=== PATIENT | female | born 1945 | race Two or more races ===

== ENCOUNTER → 2017-02-12 | Outpatient (CLI) | payer MEDICARE ==
--- NOTE | 2017-02-13 16:16 | RADRPT ---
PROCEDURE: XR Knees. CLINICAL INDICATION: Bilateral knee pain. TECHNIQUE: Total of six views. Frontal, oblique, and lateral views of both knees. COMPARISON: No prior study is available for comparison. FINDINGS: There is no fracture or dislocation. The soft tissues are normal. There are degenerative changes of both knees with osteophytes arising from all 3 joint compartment m argins. There is bilateral severe medial joint compartment narrowing, subarticular sclerosis, subar ticular cysts, and deformity. There is bilateral varus deformity. There is no lytic or blastic lesion. There is no radiopaque foreign body. IMPRESSION: 1. Severe degenerative changes of both knees predominately involving the medial joint compartments with associated varus deformity. RPTAT: QQ .Sreekanth Lassiter MD, MD Date Time Electronically viewed and signed by .Sreekanth Lassiter MD, MD on 02/13/2017 16:16 .R/
--- NOTE | 2017-02-13 21:56 | HKNOTE ---
DATE OF SERVICE: 02/12/2017 MAIN COMPLAINT: Pain in both knees. HISTORY OF MAIN COMPLAINT: The patient is a 71-year-old female, who complains of pain in both knees , which has been present for 4 or 5 years. The pain has become progressively worse. She has not se en an orthopedic surgeon for this problem. She comes in with her daughter who speaks perfect Hungarian. The patient herself speaks no Hungarian. The daughter translates. PRESENT COMPLAINTS: The pain is equally severe in both knees and is aggravated by walking, weightbe aring, and stair climbing. She uses a cane all the time. She does get rest pain on occasion. She has tried taking several yiwq-skk-bobiwko antiinflammatories and pain medications, which have not he lped her at all. She limps all the time. The right leg feels longer than the left leg. She does not have a shoe lif t. She can clip her toenails and tie her shoelaces. PAST ORTHOPEDIC HISTORY PREVIOUS ORTHOPEDIC OPERATIONS: None. PRIOR CORTISONE INTAKE: None. ALCOHOL INTAKE: None. OTHER JOINT PROBLEMS: None. BLOOD TESTS FOR ARTHRITIS: Yes (does not know the results). 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 PAST MEDICAL HISTORY: 1. Hypertension. 2. Diabetes. 3. History of deep vein thrombosis 2 years ago. PAST SURGICAL HISTORY: section 1984. DRUG ALLERGIES: NONE. MEDICATIONS: 1. Baclofen as a muscle relaxant. 2. Naproxen 550 mg. 3. Clopidigrel gel 15 mg a day as prophylaxis against deep vein thrombosis. 4. Lisinopril 10 mg daily for hypertension. 5. Metformin 500 mg a day for diabetes. 6. Uloric 80 mg a day "for uric acid levels." FAMILY HISTORY: Noncontributory. SYSTEMS REVIEW: Prone to dizzy spells, occasional nausea, heartburn, appetite loss, excess night ur ination, hypertension, diabetes, tends to constipation, 5 pregnancies. HABITS: Patient does not smoke or drink alcoholic beverages (never has). LOAN UNDERWRITER: David Kim MD/[address] [facility]; [place], [place] [address]. PHYSICAL EXAMINATION GENERAL: The patient is an extremely fragile-looking 71-year-old female. She walks with a cane and she has a marked antalgic gait; she can barely get onto the examination couch. HIPS: Both hips have full range of motion without pain. RIGHT KNEE: Right knew shows varus alignment. Extension lacks 20 degrees, flexion to 95 degrees, 6 + crepitus in the knee, none in the patella, marked pain on forced extension and full flexion. LEFT KNEE: Left knee shows varus alignment. Active and passive extension lacks 10 degrees, active and passive flexion to 90 degrees, 6+ crepitus in the knee, none in the patella. IMAGING: Plain x-rays of the right knee obtained today were reviewed and show exceedingly severe de generative osteoarthritis affecting all 3 compartments with varus alignment, jozs-gh-mfbd contact me dially, subchondral sclerosis, and osteophyte formation, depression of the lateral tibial plateau, s evere medial compartment arthritis, down-rz-ipzpvjyc patellofemoral arthritis. Plain x-rays of the left knee obtained today were reviewed and show exceedingly severe degenerative osteoarthritis affecting all 3 compartments with varus alignment, cqoy-cn-pwqd contact medially, sub chondral sclerosis, and osteophyte formation, degenerative depression of the medial tibial plateau; fracture cannot be completely excluded, and dnca-ks-rgeajwcb patellofemoral arthritis. DIAGNOSES: 1. Exceedingly severe degenerative osteoarthritis of both knees, about equal in symptomatology. 2. History of deep vein thrombosis, currently on clopidogrel. 3. Hypertension. 4. Diabetes. MANAGEMENT: The patient was advised through her daughter, that she has extremely severe arthritis o f both knees, and that her options are to either live with the pain or to consider knee replacement surgery. The operation of total knee replacement was discussed with the patient and her daughter in a good amount of detail including some of the major possible complications. The patient was given my manual titled "Arthritis of the Knee Joint" which contains information conc erning the various alternatives of treatment. It includes various forms of conservative treatment, i ncluding the use of nonsteroidal anti-inflammatory medications and their dangers. Various surgical a lternatives are discussed. The technique of total knee replacement is discussed in detail, including possible complications. Included also is a section on the possible complications of blood transfusi on, a section on postoperative precautions, and an exercise program to follow at home after total kn ee replacement. The long-term care of a total knee replacement implant is also covered in detail. Th e patient was instructed to read this manual in its entirety since it is, in and of itself, a form o f informed consent. After reading this manual, the patient will make a list of further questions bibi t may not have been covered adequately. The patient was further advised that this manual, although e xhaustive in nature, is only intended to supplement and complement a one-on-one discussion with me. The patient's daughter was referred to my website, [facility]. FINAL DIAGNOSES: 1. Exceedingly severe degenerative osteoarthritis of both knees, about equal in symptomatology. 2. History of deep vein thrombosis, currently on clopidogrel. 3. Hypertension. 4. Diabetes. The patient was seeing Dr. Sreekanth Kim and her seam checker for a full evaluation with determinatio n of the risks involved in the surgery. Once they have given their blessing to proceed, she will be scheduled to have the most symptomatic knee operated upon first. The patient was advised, when she asked, that we cannot perform bilateral knee replacements on her. REFERRING PHYSICIAN: Sreekanth Kim MD ADDRESS: [id number] [place], [place] [address]. on right now and nonactive down the entire report on a separate all by herself because will be on t o my Dictated By: VIKA SHANKS/NTS Conf#: [id number] DID#: [id number]
--- NOTE | 2017-02-13 22:07 | HKNOTE ---
DATE OF SERVICE: 02/12/2017 REFERRING PHYSICIAN: Sreekanth Kim MD Dear Dr. Kim: Thank you for referring Estrellita Swanson, who was seen in my office today complaining of pain in both kne es. She has exceedingly severe degenerative osteoarthritis of both knees and the only remedy would be bi lateral knee replacements done in staged procedures. She has a history of diabetes, hypertension, and deep vein thrombosis. I would appreciate if you co uld perform a complete evaluation on her before we consider scheduling surgery. She seems to be anxious to have the surgery. We will notify your office once we have scheduled an o perative date. Thank you for your confidence in referring her to my care. Enclosed is a copy of my office notes fo r your records. ADDENDUM: Ultrasonic evaluation of both lower legs performed on 01/09/2017 is reported as showing " no scintigraphic evidence of deep vein thrombosis, soft tissue swelling with right prepatellar focal fluid collection, which may represent bursitis. Dictated By: VIKA SHANKS/VJ Conf#: [id number] DID#: [id number] CC: Miller Jaffe;*EndCC*
== END | disposition home or self-care (01) ==
LOC: HKI 15:10
DX: M17.0 Bilateral primary osteoarthritis of knee (principal); I82.509 Chronic embolism and thrombosis of unspecified deep veins of unspecified lower extremity; E11.9 Type 2 diabetes mellitus without complications; I10 Essential (primary) hypertension
CPT/HCPCS: 73562; G0463

== ENCOUNTER 2017-04-08 07:30 | Inpatient (IN) | payer MEDICARE, OTHER ==
[~2017-04-08] VITALS: Ht 147.3 cm; Wt 82.0 kg
--- NOTE | 2017-04-09 10:20 | PREOPHP ---
DATE OF ADMISSION: 04/11/2017 The patient to have surgery with Dr. Wayne Kulkarni on 04/11/2017. CONSULTATION REQUESTED BY: Dr. Wayne Kulkarni for medical evaluation and clearance of a 71-year-old woman about to undergo surgery. Thank you, Dr. Shaikh for allowing us to participate in care of this patient. Estrellita Swanson is a 71-year-old woman, issues with her right knee, is currently being admitted for correction of the above problem. PAST SURGICAL HISTORY: She has had 1 and 4 vaginal deliveries, was admitted once with cellulitis. Otherwise, has had no other surgeries and has been relatively healthy nor has she broken any bones. MEDICATIONS: Include the following, metformin 500 mg a day. Plavix 75 mg a day. Dexilant 60 mg a day. Lisinopril 10 mg a day. Bumex 1 mg a day. Naprosyn 500 mg that she has stopped. ALLERGIES: SHE IS NOT ALLERGIC TO ANY MEDICATIONS. SOCIAL HISTORY: Patient is . Has 5 children, 16 grandchildren and no great grandchildren yet. She does not smoke or drink alcohol nor does she drink any coffee. Usually has no difficulty sleeping at night. FAMILY HISTORY: Both parents are . Father age 72, had heart issues. Mother 77, diabetes and its complications. She is one of eleven or twelve. There is a family history of diabetes and heart. No cancer, hypertension, or strokes. REVIEW OF SYSTEMS: HEENT: Periodic tension headaches. CARDIORESPIRATORY: Denies any chest pain or shortness of breath. GASTROINTESTINAL: Has signs and symptoms of hyperacidity; otherwise no melena or hematemesis. GENITOURINARY: No urgency frequency. GYNECOLOGIC: Postmenopause, up-to-date. MUSCULOSKELETAL: Positive for right knee pain. NEUROPSYCHIATRIC: Unremarkable in general health, as above. PHYSICAL EXAMINATION: Patient's blood pressure was 120/60, pulse was 78 and regular, respirations were 18, temperature 97.6, height 5 feet 1 inch, weight 182 pounds. GENERAL APPEARANCE: Patient was noted to be a well-developed, well-nourished female, alert and cooperative, in no apparent acute distress. Oriented to time, place, and person. HEENT: Head was atraumatic. The eyes: Pupils were equal, reactive to light and accommodation. Fundi were benign. Tympanic membranes were unremarkable. Nose was negative. Mouth was unremarkable. Fair oral hygiene was present. NECK: Supple without any rigidity. Trachea was midline. Thyroid was within normal limits. Neck veins were flat. Carotid pulses were equal. No bruits were heard. BACK: Exam was unremarkable. CHEST: Symmetrical. BREAST AND AXILLARY: Exam did not reveal any masses. LUNGS: Clear to percussion and auscultation. HEART: PMI is 5th intercostal space at the midclavicular line. Regular sinus rhythm was noted. No significant murmurs, rubs, or gallops being elicited. ABDOMEN: Soft. Good bowel sounds were noted. No significant organomegaly, masses or tenderness. Scar from prior surgery was noted. GENITALIA AND PELVIRECTAL: Exam up-to-date per primary care physician. EXTREMITIES: Did not reveal any clubbing, edema, or cyanosis. Peripheral pulses were physiologic. SKIN: Moist and warm without any eruptions. No gross lymphadenopathy was noted. NEUROLOGIC: Exam was grossly intact. IMPRESSION: 1. Degenerative joint disease, right knee. 2. Hypertension. 3. Hyperlipidemia. 4. Gastroesophageal reflux disease. 5. Prediabetes mellitus type 2. 6. Stable health. REVIEW OF LABORATORY AND OTHER DATA: Patient's chemistry panel revealed a random glucose of 122, normal electrolytes, BUN, creatinine. Liver function tests were normal. Thyroid function tests were normal as well. Hemoglobin A1c was 5.7. The patient's vitamin B12 was low. Patient will be advised to take supplementation. Patient's EKG was normal, as was her chest x- ray. DISCUSSION: Dr. Kulkarni, I see no contraindications to patient undergoing current proposed surgery under desired form of anesthesia and feel she is a suitable candidate at this particular point in time. We will be more than happy to follow her with you during her stay at [facility]. Thank you again Dr. Kulkarni for allowing us to participate in care this patient. Dictated By: Luís Sosa MD /chevy/wilner /Document#: [id number]
[2017-04-10 12:11] VITALS: BMI 36.6
[2017-04-11] VITALS (21 sets, daily range): BP systolic 127–157; BP diastolic 60–92; PULSE 75–108; RESP 12–26; Ht 147.3 cm; Wt 82.0 kg
[2017-04-11] MEDS ORDERED: VANCOMYCIN 1 GM (PMX) 250 ML IVPB ONE (06:11)
[2017-04-11] MEDS ORDERED: NAPR-260 PO (06:21)
[2017-04-11] MEDS ORDERED: CLOP75TA27 PO (06:21)
[2017-04-11] MEDS ORDERED: BUME1TAB18 PO (06:21)
[2017-04-11] MEDS ORDERED: METF500T4 PO (06:21)
[2017-04-11] MEDS ORDERED: DEXL60CA2 PO (06:21)
[2017-04-11] MEDS ORDERED: LISI10TA2 PO (06:21)
[2017-04-11] MEDS ORDERED: ONDANSETRON 4 MG INJ IV ONE (06:30)
[2017-04-11] MEDS ORDERED: LACTATED RINGER'S 1,000 ML IV* SCH (06:30)
[2017-04-11] MEDS ORDERED: DEXAMETHASONE 4 MG/ML 1 ML INJ IV ONE (06:30)
[2017-04-11] MEDS ORDERED: oxyCODONE (CR) 10 MG TAB [oxyCONTIN] PO ONE (06:30)
[2017-04-11] MEDS ORDERED: LANSOPRAZOLE 30 MG CAP PO ONE (06:30)
[2017-04-11] MEDS ORDERED: CELECOXIB 200 MG CAP PO ONE (06:30)
[2017-04-11] MEDS ORDERED: SOD CHLORIDE 0.9% IRR SCH ×2 (06:30)
[2017-04-11] MEDS ORDERED: TRANEXAMIC ACID IVPB ONE (06:30)
[2017-04-11] MEDS ORDERED: TRANEXAMIC ACID IRR SCH ×2 (06:30)
[2017-04-11] MEDS ORDERED: ACETAMINOPHEN 1000MG/100ML IV 100 ML IVPB ONE (06:30)
[2017-04-11] MEDS ORDERED: SOD CHLORIDE 0.9% IVPB ONE (06:30)
--- NOTE | 2017-04-11 06:30 | HPN ---
Date/Time of Note Date/Time of Note DATE: 04/11/17 TIME: 06:30 Interval H&P Admission Note Pt. seen H&P reviewed: No system changes ANTELMO CLAY PA-C Apr 11, 2017 06:30
[2017-04-11] MEDS ORDERED: POLYMYXIN B 500000 UNIT INJ ONE (07:30)
[2017-04-11] MEDS ORDERED: VANCOMYCIN 1 GM INJ ONE (07:30)
[2017-04-11] MEDS ORDERED: METHYLENE BLUE 1% 10 ML INJ ONE (07:31)
[2017-04-11] MEDS ORDERED: ROPIVACAINE 0.2% 100 ML ONE (07:31)
[2017-04-11] MEDS ORDERED: TOBRAMYCIN 1.2 GM POWDER ONE (07:31)
[2017-04-11] MEDS ORDERED: BUPIVACAINE 0.25%/EPI (SDV) 30 ML INJ ONE ×2 (07:35→10:25)
[2017-04-11] MEDS ORDERED: MIDAZOLAM 1 MG/ML 2 ML INJ ONE (07:43)
[2017-04-11] MEDS: KNEE PAIN COCKTAIL VANCO INJ SCH ×12 (08:00→09:28)
[2017-04-11] MEDS ORDERED: FENTAnyl 50 MCG/ML VIAL ONE (08:07)
[2017-04-11] MEDS ORDERED: ROPIVACAINE 0.5 % 30 ML VIAL ONE (08:08)
[2017-04-11] MEDS ORDERED: BACITRACIN 50000 UNITS INJ IRR ONE (09:27)
[2017-04-11] MEDS ORDERED: ROPIVACAINE 0.2% 100ML BAG INJ ONE (09:28)
[2017-04-11] MEDS ORDERED: ONDANSETRON 4 MG INJ ONE (12:16)
[2017-04-11] MEDS ORDERED: ETOMIDATE 20 MG INJ ONE (12:16)
[2017-04-11] MEDS ORDERED: LIDOCAINE 2% (SDV) 5 ML INJ ONE (12:16)
[2017-04-11] MEDS ORDERED: ROCURONIUM 50 MG INJ ONE (12:16)
[2017-04-11] MEDS ORDERED: DEXTROSE 5%-LR 1,000 ML IV SCH (12:26)
[2017-04-11] MEDS ORDERED: NALOXONE (0.4 MG/ML) INJ IV PRN (12:30)
[2017-04-11] MEDS ORDERED: oxyCODONE 5 MG TAB PO PRN ×2 (12:30)
[2017-04-11] MEDS ORDERED: DIPHENHYDRAMINE 50 MG INJ IM PRN (12:30)
[2017-04-11] MEDS ORDERED: NA PHOSPHATE/BIPHOS 133 ML ENEMA PR PRN (12:30)
[2017-04-11] MEDS ORDERED: MAGNESIUM HYDROXIDE 30ML CUP PO PRN (12:30)
[2017-04-11] MEDS ORDERED: HYDROmorphONE 0.2 MG/ML PCA IV PRN (12:30)
[2017-04-11] MEDS ORDERED: COUMADIN NOTE XX SCH (12:30)
[2017-04-11] MEDS ORDERED: ZOLPIDEM 5 MG TAB PO PRN (12:30)
[2017-04-11] MEDS ORDERED: SENNA/DOCUSATE NA (8.6MG/50MG) TAB PO PRN (12:30)
[2017-04-11] MEDS ORDERED: MEPERIDINE 10 MG/ML 30 ML PCA IV PRN (12:30)
[2017-04-11] MEDS ORDERED: BISACODYL 10 MG SUPP PR PRN (12:30)
[2017-04-11] MEDS ORDERED: BETHANECHOL 25 MG TAB PO PRN (12:30)
[2017-04-11] MEDS ORDERED: DOCUSATE SODIUM 100 MG CAP PO ONE (12:38)
[2017-04-11] MEDS ORDERED: ASPIRIN (EC) 325 MG TAB PO ONE (12:38)
--- NOTE | 2017-04-11 12:38 | PDOCDIS ---
Discharge Instructions DIAGNOSIS Discharge Diagnosis Status post right total knee arthroplasty CONDITION Patient Condition: Stable HOME CARE INSTRUCTIONS: Diet Instructions: Regular ACTIVITY: Activity Restrictions: Slowly Increase Activity Rest between Activity Avoid heavy lifting No Sexual Activity Do not Drive Do not operate Machinery Do not operate Power Tool Avoid Heavy Housework Keep Limb Elevated (And use ice modalities while limits elevated at rest.) Weight Bearing (As tolerated with front wheeled walker.) Bathing Restrictions: Shower (Using Tegaderm with pad. Apply prior to shower. Make sure that area is nice and dry before removal. Repeat the steps each days until katrina are removed 10 days postoperatively.) FOLLOW UP/APPOINTMENTS Follow-up Plan 05/01/2017 at 2:45 PM ANTELMO CLAY PA-C Apr 11, 2017 12:37
--- NOTE | 2017-04-11 12:39 | OPR ---
Date/Time of Note Date/Time of Note DATE: 04/11/17 TIME: 12:34 Operative Report Preoperative Diagnosis Severe Deg Right Knee Postoperative Diagnosis Same Operation/Procedure Performed Right Total Knee Replacement. Anesthesia Type: general, epidural Estimated Blood Loss: 150 - 200 ml's Transfusion Required: no Specimens Bone Grafts/Implants: none Complications: no VIKA MICHAUD MD Apr 11, 2017 12:39
[2017-04-11] MEDS ORDERED: CEFAZOLIN 1 GM/50 ML (PMX) 50 ML IVPB ONE (12:44)
[2017-04-11] MEDS: CEFAZOLIN 1 GM/50 ML (PMX) 50 ML IVPB SCH ×2 (12:55→20:50)
[2017-04-11] MEDS: ONDANSETRON 4 MG INJ IV SCH ×2 (12:56→18:01)
--- NOTE | 2017-04-11 12:58 | OPR ---
Date/Time of Note Date/Time of Note DATE: 04/11/17 TIME: 12:49 Operative Report Free Text/Dictation Date of Operation: 818 1 7 Surgeon: Wayne Kulkarni MD Client Retention Specialist: Jonny Wright PA-C Anesthesiologist: Dr. Lawrence Navas Preoperative Diagnosis: Exceedingly severe degenerative osteoarthritis of the right knee. Postoperative Diagnosis: Exceedingly severe degenerative osteoarthritis of the right knee. Operation Performed: Total knee replacement (arthroplasty of the knee, condylar plateau medial and lateral compartments with patella resurfacing, CPT 87454). Justification for Surgery: The knee was found to have an end-stage osteoarthritis. The patient is a very active 71-year-old diffuse lifestyles markedly affected by the arthritic knee. An extensive course of conservative care has been tried prior to embarking on the knee replacement operation. There can be no reasonable expectation that any further conservative treatment will make any improvement to this patient's pain level and lifestyle. The risks and complications of the surgery were discussed with the patient at the preoperative visit as well as the risks and possible complications of blood transfusion using hospital blood. The patient is agreeable to using hospital blood if needed. Description of Procedure: The patient was given intravenous antibiotics 1 hour prior to surgery. An epidural anesthetic was initiated in the ICU holding area. The patient was taken to the operating room and given a light general anesthetic. The leg, foot, and ankle were prepared and draped in the usual sterile fashion. The center of the ankle was marked at the midpoint between the 2 malleoli with a sterile marking pen. A tourniquet around the thigh was inflated to 250 mmHg after the leg had been exsanguinated using an Esmarch bandage. The tourniquet was inflated at the initiation of procedure for a short period and was then again reinflated at the time of cementing the components parts. The total tourniquet time was [] minutes. A longitudinal incision was made over the anterior aspect of the knee. The incision extended from the tibial tubercle to a point just above the patella. The medial capsule was exposed by sharp and blunt dissection, and was incised inch medial to the patella. A marking stitch was set on each side of the incision at the midpoint of the capsule so as to enable accurate reapproximation at the end of the operation. A vastus split was made in the vastus medialis extending from the superior pole of the patella for approximately 5 cm between the line with the muscle fibers. The ends of the muscle split at the patella were marked with a marking stitch on each side for later accurate reapproximation. The patella was reflected laterally and osteophytes around the brim of the patella were removed. Osteophytes along the lateral femoral condyle were removed so as to facilitate lateral reflection of the patella. Posterior medial osteophytes were removed on the lateral side as well, Sastry free of the lateral collateral ligament. Medial femoral osteophytes and posteromedial femoral osteophytes were also removed at this time. This allowed for the knee to be brought into a more normal alignment. A segment of bone was cut from the articular surface of the patella using a caliper to determine the exact thickness to be removed. The remaining thickness of the patella was 18 mm mm. The knee was flexed, and the patella was displaced laterally without eversion. Osteophyte in the femoral notch were removed. The remnants of the medial and lateral menisci were excised and the cruciate ligaments were excised. The medial collateral ligament was elevated as an osteo -periosteal flap from the proximal tibia. The distal end of the medial collateral ligament remained attached to the tibia throughout the operation. The tibia was retracted forward with Hohmann retractor, inserted posterior to the midpoint of the proximal tibia. The tibial jig was set in place in such a way as to align longitudinally with the anterior tibial spine, with the junction of the middle and medial 2/3 of the patella tendon and with the posterior intercondylar eminence of the tibia. An AP and lateral x-ray was obtained with the ligament jig in place. This showed that the alignment was satisfactory after some slight adjustments were made. The posterior slope of the tibia was set at 6 degrees. The tibial cutting block was attached to the proximal tibia with 2 Steinmann pins. An external alignment samara was placed and the cutting block to confirm the alignment of the cutting block. An Cruzito Wing feeler gauge was now placed on the superior aspect of the cutting block to further confirm the posterior slope of the tibia in the depths of the cut to be made. An oscillating saw was used to remove an appropriate amount of bone from the proximal tibia with the healthy side being used to measure the cutting depth. The lateral femoral condyle of the distal femur was measured to determine the appropriate size for the femoral component. The anterior condyle of the femur was partially removed with a rongeur. A medium size cutting block was attached to the distal femur with 2 Steinmann pins through the pinholes in the block. The external alignment jig of this cutting block was lined up with the anterior surface of the femur and a central intercondylar hole for the intra -medullary samara was drilled into the hole and the alignment block. The block was removed. A long Water pik nozzle was used to flush fat from the intramedullary canal. The appropriately sized cutting block was now attached to the femur by means of intramedullary samara. The linking guide was inserted into the slot in the base of the femoral cutting block with the knee set at 90 degrees of flexion and with the linking guide set flush with the proximal tibial cut in order to set the appropriate rotational alignment on the femoral cutting block. Ligament balance was checked at this point and was found to be very satisfactory. Once the rotational alignment had been determined, and the ligaments found to be balanced, the femoral cutting block was secured to the distal femur with 2 Steinmann pins. The anterior and posterior cuts of the distal femur were made off the femoral cutting block. The cutting block was removed and a spacer block was used to measure the flexion gap which was found to be 12.5 mm. The same block size without the femoral element was used with the leg extension to determine the amount of distal femur to be removed in the transverse plane. A 5 degree distal cutting block was now set on the femoral entry intramedullary samara, and the samara was inserted into the intramedullary canal. The appropriate amount of bone to be removed was determined. The femoral cutting block was pinned to the anterior surface of the femur with 2 Steinmann pins. The appropriate amount of bone was resected off the distal femur to give an extension gap equal to the thickness of the flexion gap. The cut needed to be repeated after initial cut in order to produce an extension gap the same size of the flexion gap. By using the appropriate cutting blocks, the rest of the femoral cuts were made. The femoral trial component was installed and was found to fit perfectly. The femoral trial component was removed. The proximal tibia was sized, and the appropriate tibial tray selected. The central fixation hole in the tibia was made using the tibial tray template and the appropriate instruments. The femoral tibial trials and the trial tibial insert were installed, and the patella was prepared to accept the 32 m sized dome component. The trial components were all removed. The tourniquet was inflated. Soft tissues around the knee, especially the posterior capsule, were injected with mixture of Naropin, Toradol, morphine, and clonidine. The cut surfaces of the bones were cleaned with pulsatile Water Jet lavage and thoroughly dried. Sclerotic bone surfaces were drilled with a 1/8-inch drill. The tibial trial component was installed with the methyl methacrylate cement followed by the femoral component and finally the patellar component. Cement was used on all 3 components. The cement was finger packed into the cut surfaces of the bone and pressurized with a rubber dam in order to get good interdigitation of the cement into the bone. A lateral x-ray of the knee was obtained while the cement was hardening with the anticipated appropriate spacer trial in place. This showed that the knee was in full extension. Once the cement was hard, all extraneous cement was removed. The cut edges of the medial capsule were held together at the midpoint with a towel clip, and the knee was put through a full range of motion. The patella was found to track satisfactorily. A lateral release was not required. At this point, the patella was round to track very well in the patellar groove of the femoral component. The knee was frequently irrigated with normal saline containing antibiotics with pulsatile lavage throughout the entire operation as a prophylactic measure against infection. Once the cement was hard, the tourniquet was released. Bleeding points were cauterized. The total tourniquet time was []. The patient 's vital signs remained stable throughout the operation. The permanent rotating bearing was installed. Superficial and deep Hemovac drains were set in place. The wound was closed using interrupted Vicryl on the capsule with FiberWire used strategic points such as the attachment of the distal ends of the vastus medialis split, and the tibial tendon was also attached to the osteo--periosteal flap with FiberWire. The rest of the medial capsule was closed with interrupted Vicryl. A subcuticular stitch was inserted and katrina were used on the skin. The usual sterile dressings were applied. A Vivek-Ulloa compression dressing was applied after sterile cooling pad had been set in place against the deep tissue by sterile cast padding. The patient's condition at the end of the procedure was satisfactory. Vital signs remained stable throughout the operation. The patient returned to the recovery room in stable condition. X-rays were obtained in the recovery room. Calf pumps were applied to both legs in the operating room. There were no problems or complications as far as we know. The sponge and instrument count were correct. Component Information: Knee Implant Type: LCS. 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 Total Tourniquet Time: 12.5 Total Blood Loss: 150 Dictacted By: Wayne Kulkarni MD Procedure Date: Apr 11, 2017 Anesthesia Type: general, epidural Estimated Blood Loss: 150 - 200 ml's Transfusion Required: no Complications: no WAYNE KULKARNI MD Apr 11, 2017 12:58
[2017-04-11] MEDS: ACETAMINOPHEN 1000MG/100ML IV 100 ML IVPB SCH ×2 (13:02→20:20)
--- NOTE | 2017-04-11 14:17 | RADRPT ---
PROCEDURE: Right knee x-ray. CLINICAL INDICATION: Intraoperative localization for right knee replacement procedure. TECHNIQUE: Two x-ray images were obtained intraoperatively during a right knee prosthesis placemen t procedure. COMPARISON: None available FINDINGS: 2 x-ray images were obtained intraoperatively for localization during a right knee prosthesis placem ent procedure. The procedure was performed by Dr. Kulkarni; images were obtained for localization intraoperatively. Surgical hardware is seen in place. IMPRESSION: 1. Xray images obtained intraoperatively for localization during a right knee prosthesis placement procedure. RPTAT: QQ .Saroj Worley MD, Date Time Electronically viewed and signed by .Saroj Worley MD, on 04/11/2017 14:16 .R/
[2017-04-11] MEDS ORDERED: BACITRACIN 50000 UNITS INJ ONE (15:05)
[2017-04-11] MEDS ORDERED: GLUCOSE GEL 15 GRAM TUBE BUCCAL PRN (15:30)
[2017-04-11] MEDS ORDERED: GLUCAGON 1 MG INJ IM PRN (15:30)
[2017-04-11] MEDS ORDERED: TRANEXAMIC ACID 820 MG in SOD CHLORIDE 0.9% 100 ML IVPB ONE ×2 (15:30→18:30)
[2017-04-11] MEDS ORDERED: GLUCOSE GEL 15 GRAM TUBE PO PRN ×2 (15:30)
[2017-04-11] MEDS ORDERED: DEXTROSE 50% 50 ML SYRINGE IV PRN ×2 (15:30)
--- NOTE | 2017-04-11 16:00 | CONS ---
Date/Time of Note Date/Time of Note DATE: 04/11/17 TIME: 15:50 Consult Date/Type/Reason Admit Date/Time Apr 11, 2017 at 05:49 Initial Consult Date 04/02/2017 Type of Consultation: internal medicine/endo Reason for Consultation pre operative medical evaluation and clearance Ordering Provider: VIKA MICHAUD MD Subjective patient getting back into bed after walk with pt seems stable Objective Vital Signs Date Time Temp Pulse Resp B/P Pulse Ox O2 Delivery O2 Flow Rate FiO2 04/11/17 13:31 88 14 148/74 95 Room Air 04/11/17 12:46 10.0 04/11/17 12:41 98.0 Exam vss heent neg. lungs clear heart regular rhythm Results/Medications Results 24 hrs Laboratory Tests Test 04/11/17 06:42 04/11/17 13:18 Bedside Glucose 112 168 Medications Current Medications Dextrose/Lactated Ringer's (D5-Lr) 1,000 ml @ 80 mls/hr [id number] IV ; Start at 12:26 Hydromorphone HCl (Dilaudid HEAVY EQUIPMENT SALES ASSOCIATE) Q4PCA PRN IV SEVERE PAIN 8-10; Start at 12:30; Stop 04/12/17 at 12:29 Meperidine HCl (Demerol HEAV[employer] EQUIPMENT SALES ASSOCIATE) Q4PCA PRN IV SEVERE PAIN 8-10; Start 04/11/17 at 12:30; Stop 04/12/17 at 12:29 Oxycodone HCl (Roxicodone) 20 mg Q3H PRN PO PAIN LEVEL 8-10; Start 04/11/17 at 12:30 Oxycodone HCl (Roxicodone) 10 mg Q3H PRN PO PAIN LEVEL 4-7; Start 04/11/17 at 12:30 Oxycodone HCl 5 mg 5 mg Q3H PRN PO PAIN LEVEL 1-3; Start 04/11/17 at 12:30 Acetaminophen (Ofirmev 1000mg/ 100ml Iv) 100 ml @ 400 mls/hr Q8H IVPB Last administered on 04/11/17t 13:02; Admin Dose 400 MLS/HR; Start 04/11/17 at 12:30 ; Stop 04/13/17 at 04:44 Zolpidem Tartrate (Ambien) 5 mg HS PRN PO INSOMNIA; Start 04/11/17 at 12:30 Ondansetron HCl 4 mg 4 mg Q6H IV Last administered on 04/11/17 12:56; Admin Dose 4 MG; Start 04/11/17 at 13:00; Stop 04/12/17 at 07:01 Cefazolin Sodium (Ancef 1 Gm/50 ml (Pmx)) 50 ml @ 100 mls/hr Q8H IVPB Last administered on 04/11/17 12:55; Admin Dose 100 MLS/HR; Start 04/11/17 at 12:30 ; Stop 04/12/17 at 04:59 Miscellaneous Information (Note) NOTE XX ; Start 04/11/17 at 12:30 Aspirin (Ecotrin) 325 mg BID PO ; Start 04/12/17 at 09:00 Celecoxib (Celebrex) 200 mg BID PO ; Start 04/12/17 at 09:00 Dexamethasone (Decadron) 4 mg DAILY@07 IV ; Start 04/12/17 at 07:00; Stop at 06:59 Pantoprazole (Protonix Tab) 40 mg DAILY@06 PO ; Start 04/13/17 at 06:00 Docusate Sodium/ Ferrous Fumarate (Zahraa-Sequels) 1 tab BID PO ; Start 04/12/17 at 09:00 Docusate Sodium (Colace) 200 mg BID PO ; Start 04/12/17 at 09:00; Stop 04/15/17 at 08:59 Simethicone (Mylicon) 80 mg TID PRN PO DISTENSION/GAS/BLOATING; Start 04/11/17 at 12:30 Senna/Docusate Sodium (Senokot-S) 2 tab BID PRN PO CONSTIPATION; Start at 12:30 Magnesium Hydroxide (Milk Of Mag) 30 ml HS PRN PO CONSTIPATION; Start 04/11/17 at 12:30 Bisacodyl (Dulcolax Supp) 10 mg DAILY PRN [place] CONSTIPATION; Start 04/11/17 at 12 :30 Sodium Biphosphate/ Sodium Phosphate (Fleet Enema) 133 ml DAILY PRN [place] CONSTIPATION; Start 04/11/17 at 12:30 Diphenhydramine HCl (Benadryl) 25 mg Q4H PRN IM ITCHING OR RASH; Start at 12:30 Ketorolac Tromethamine (Toradol) 15 mg DAILY@06 PRN INJ ADMINSTER BY SURGEON ONLY; Start 04/12/17 at 06:00; Stop 04/16/17 at 05:59 Bupivacaine HCl/ Epinephrine Bitart (Marcaine 0.25%/ Epi (Sdv) 30 ml) 20 ml DAILY@06 PRN INJ ADMINSTER BY SURGEON ONLY; Start 04/12/17 at 06:00; Stop 04/16 at 05:59 Naloxone HCl (Narcan) 0.2 mg Q2M PRN IV DECREASED REPIRATORY RATE; Start at 12:30 Clopidogrel Bisulfate (plaVIX) 75 mg DAILY PO ; Start 04/12/17 at 09:00 Lisinopril (Zestril) 10 mg DAILY PO ; Start 04/12/17 at 09:00 Miscellaneous Information 1 ea NOTE XX ; Start 04/11/17 at 15:30 Glucose (Glutose) 15 gm Q15M PRN PO DECREASED GLUCOSE; Start 04/11/17 at 15:30 Glucose (Glutose) 22.5 gm Q15M PRN PO DECREASED GLUCOSE; Start 04/11/17 at 15: 30 Dextrose (D50w Syringe) 25 ml Q15M PRN IV DECREASED GLUCOSE; Start 04/11/17 at 15:30 Dextrose (D50w Syringe) 50 ml Q15M PRN IV DECREASED GLUCOSE; Start 04/11/17 at 15:30 Glucagon (Glucagen) 1 mg Q15M PRN IM DECREASED GLUCOSE; Start 04/11/17 at 15:30 Glucose (Glutose) 15 gm Q15M PRN BUCCAL DECREASED GLUCOSE; Start 04/11/17 at 15 :30 Assessment/Plan Chief Complaint/Hosp Course post total knee replacement Problems: Additional Assessment/Plan plan will monitor diabetes blood pressure etc. and follow with you --thank you SO James MD Apr 11, 2017 16:00
[2017-04-11] MEDS: LACTATED RINGER'S 1,000 ML IV SCH (17:57)
[2017-04-11] MEDS: INSULIN ASPART [NOVOLOG] 3 ML PEN SC SCH ×2 (17:59→20:25)
[2017-04-12] MEDS: ONDANSETRON 4 MG INJ IV SCH ×2 (01:06→06:56)
[2017-04-12 01:20] VITALS: BP 119/58; RESP 20
[2017-04-12] MEDS: ACCU-CHEK XX SCH ×2 (02:00)
[2017-04-12] MEDS: LACTATED RINGER'S 1,000 ML IV SCH ×2 (04:30→17:00)
[2017-04-12] MEDS: ACETAMINOPHEN 1000MG/100ML IV 100 ML IVPB SCH ×3 (05:04→21:40)
[2017-04-12] MEDS ORDERED: BUPIVACAINE 0.25%/EPI (SDV) 30 ML INJ INJ PRN (06:00)
[2017-04-12] MEDS ORDERED: KETOROLAC 15 MG INJ INJ PRN (06:00)
[2017-04-12] MEDS: CEFAZOLIN 1 GM/50 ML (PMX) 50 ML IVPB SCH (06:00)
[2017-04-12 06:04] LABS: BASOPHILS % 0.2 % (0.0-2.0); HEMATOCRIT 26.3 % (37.0-47.0); LYMPHOCYTES # 1.8 10^3/ul (0.8-2.9); LYMPHOCYTES % 18.8 % (15.0-51.0); MEAN CORPUSCULAR HEMOGLOBIN 30.5 pg (29.0-33.0); MEAN CORPUSCULAR HGB CONC 34.2 g/dl (32.0-37.0); MEAN CORPUSCULAR VOLUME 89.2 fl (82.0-101.0); MONOCYTE # 0.8 10^3/ul (0.3-0.9); MONOCYTES % 8.6 % (0.0-11.0); NEUTROPHILS % 71.9 % (39.0-77.0); PLATELET COUNT 179 10^3/UL (140-415); RED BLOOD COUNT 2.95 10^6/ul (4.20-5.40); RED CELL DISTRIBUTION WIDTH 12.5 % (11.5-14.5); WHITE BLOOD COUNT 9.6 10^3/ul (4.8-10.8)
[2017-04-12] MEDS: DEXAMETHASONE 4 MG/ML 1 ML INJ IV SCH (06:56)
--- NOTE | 2017-04-12 07:35 | CONS ---
Date/Time of Note Date/Time of Note DATE: 04/12/17 TIME: 07:32 Assessment/Plan Assessment/Plan Problems: (1) Diabetes mellitus type 2 in obese Status: Chronic Comment: She probably has complications of diabetic retinopathy as well as neuropathy. At the present time on low-dose medications even in the setting of her body mass index she has adequate control based on Accu-Cheks. We will continue her on her treatment using the metformin and diabetic diet. (2) Obesity (BMI 30-39.9) Status: Chronic Comment: Calorie restriction diet (3) Essential hypertension Status: Chronic Comment: Continue MARY inhibitor which is appropriate given the primary diagnosis of diabetes mellitus type 2 (4) Osteoarthritis Status: Chronic Comment: She is postop from a right total knee replacement and progressing. Qualifiers: Osteoarthritis location: knee Osteoarthritis type: primary Laterality: bilateral Qualified Code: M17.0 - Primary osteoarthritis of both knees (5) B12 deficiency Status: Chronic Comment: This is a new diagnosis. This can be associated with chronic usage of metformin. Treatment will be intramuscular replacement (6) Status post total right knee replacement Status: Acute Comment: She is progressing postop without complications Consultation Date/Type/Reason Admit Date/Time Apr 11, 2017 at 05:49 Initial Consult Date April 11, 2017 Type of Consultation: internal medicine/endo Reason for Consultation Diabetes mellitus type 2; hypertension; Referring Provider: VIKA MICHAUD MD 24 HR Interval Summary Free Text/Dictation Patient is awake and alert lying in bed. She reports while not moving around she is without pain. Constitutional: no complaints Detailed Summary Respiratory: no complaints (Denies any shortness of breath) Cardiovascular: no complaints (Denies chest pain chest pressure palpitations orthopnea or PND) Gastrointestinal: no complaints Genitourinary: no complaints Neurologic: no complaints Exam/Review of Systems Vital Signs Vitals Vital Signs Date Time Temp Pulse Resp B/P Pulse Ox O2 Delivery O2 Flow Rate FiO2 04/12/17 01:20 98.2 67 20 119/58 100 04/11/17 16:40 Room Air 04/11/17 14:00 2.0 Intake and Output 04/11/17 04/11/17 04/12/17 15:00 23:00 07:00 Intake Total 217 ml 216.4 ml Output Total 800 ml 120 ml 60 ml Balance -583 ml 96.4 ml -60 ml Exam Constitutional: alert, oriented Respiratory: clear to auscultation, normal air movement Cardiovascular: nl pulses, regular rate and rhythm Extremities: normal pulses, other (Monofilament neuropathy bilateral plantar feet no evidence onychomycosis no ulcers) Results Result Diagram: 04/12/17 0500 Results 24 hrs Laboratory Tests Test 04/11/17 13:18 04/11/17 15:46 04/11/17 17:55 04/11/17 20:24 Bedside Glucose 168 148 131 Hepatitis B Surface Antigen NEGATIVE Hepatitis C Antibody NEGATIVE HIV (1&2) Antibody NEGATIVE Test 04/12/17 05:00 White Blood Count 9.6 Red Blood Count 2.95 L Hemoglobin 9.0 L Hematocrit 26.3 L Mean Corpuscular Volume 89.2 Mean Corpuscular Hemoglobin 30.5 Mean Corpuscular Hemoglobin Concent 34.2 Red Cell Distribution Width 12.5 Platelet Count 179 Mean Platelet Volume 11.0 H Neutrophils % 71.9 Lymphocytes % 18.8 Monocytes % 8.6 Eosinophils % 0.0 Basophils % 0.2 Nucleated Red Blood Cells % 0.0 Neutrophils # (Manual) 7 Lymphocytes # 1.8 Monocytes # 0.8 Eosinophils # 0.0 Basophils # 0.0 Nucleated Red Blood Cells # 0.0 Medications Medications Current Medications Hydromorphone HCl (Dilaudid RESORT DESK CLERK) Q4PCA PRN IV SEVERE PAIN 8-10; Start at 12:30; Stop 04/12/17 at 12:29 Meperidine HCl (Demerol RESORT DESK CLERK) Q4PCA PRN IV SEVERE PAIN 8-10; Start 04/11/17 at 12:30; Stop 04/12/17 at 12:29 Oxycodone HCl (Roxicodone) 20 mg Q3H PRN PO PAIN LEVEL 8-10; Start 04/11/17 at 12:30 Oxycodone HCl (Roxicodone) 10 mg Q3H PRN PO PAIN LEVEL 4-7; Start 04/11/17 at 12:30 Oxycodone HCl 5 mg 5 mg Q3H PRN PO PAIN LEVEL 1-3; Start 04/11/17 at 12:30 Acetaminophen (Ofirmev 1000mg/ 100ml Iv) 100 ml @ 400 mls/hr Q8H IVPB Last administered on 04/12/17t 05:04; Admin Dose 400 MLS/HR; Start 04/11/17 at 12:30 ; Stop 04/13/17 at 04:44 Zolpidem Tartrate (Ambien) 5 mg HS PRN PO INSOMNIA Last administered on t 01:09; Admin Dose 5 MG; Start 04/11/17 at 12:30 Miscellaneous Information (Note) NOTE XX ; Start 04/11/17 at 12:30 Aspirin (Ecotrin) 325 mg BID PO ; Start 04/12/17 at 09:00 Celecoxib (Celebrex) 200 mg BID PO ; Start 04/12/17 at 09:00 Dexamethasone (Decadron) 4 mg DAILY@07 IV Last administered on 04/12/17 06:56 ; Admin Dose 4 MG; Start 04/12/17 at 07:00; Stop 04/15/17 at 06:59 Pantoprazole (Protonix Tab) 40 mg DAILY@06 PO ; Start 04/13/17 at 06:00 Docusate Sodium/ Ferrous Fumarate (Zahraa-Sequels) 1 tab BID PO ; Start 04/12/17 at 09:00 Docusate Sodium (Colace) 200 mg BID PO ; Start 04/12/17 at 09:00; Stop 04/15/17 at 08:59 Simethicone (Mylicon) 80 mg TID PRN PO DISTENSION/GAS/BLOATING; Start 04/11/17 at 12:30 Senna/Docusate Sodium (Senokot-S) 2 tab BID PRN PO CONSTIPATION; Start at 12:30 Magnesium Hydroxide (Milk Of Mag) 30 ml HS PRN PO CONSTIPATION; Start 04/11/17 at 12:30 Bisacodyl (Dulcolax Supp) 10 mg DAILY PRN IN CONSTIPATION; Start 04/11/17 at 12 :30 Sodium Biphosphate/ Sodium Phosphate (Fleet Enema) 133 ml DAILY PRN IN CONSTIPATION; Start 04/11/17 at 12:30 Diphenhydramine HCl (Benadryl) 25 mg Q4H PRN IM ITCHING OR RASH; Start at 12:30 Ketorolac Tromethamine (Toradol) 15 mg DAILY@06 PRN INJ ADMINSTER BY SURGEON ONLY; Start 04/12/17 at 06:00; Stop 04/16/17 at 05:59 Bupivacaine HCl/ Epinephrine Bitart (Marcaine 0.25%/ Epi (Sdv) 30 ml) 20 ml DAILY@06 PRN INJ ADMINSTER BY SURGEON ONLY; Start 04/12/17 at 06:00; Stop 04/16 at 05:59 Naloxone HCl (Narcan) 0.2 mg Q2M PRN IV DECREASED REPIRATORY RATE; Start at 12:30 Clopidogrel Bisulfate (plaVIX) 75 mg DAILY PO ; Start 04/12/17 at 09:00 Lisinopril (Zestril) 10 mg DAILY PO ; Start 04/12/17 at 09:00 Miscellaneous Information 1 ea NOTE XX ; Start 04/11/17 at 15:30 Glucose (Glutose) 15 gm Q15M PRN PO DECREASED GLUCOSE; Start 04/11/17 at 15:30 Glucose (Glutose) 22.5 gm Q15M PRN PO DECREASED GLUCOSE; Start 04/11/17 at 15: 30 Dextrose (D50w Syringe) 25 ml Q15M PRN IV DECREASED GLUCOSE; Start 04/11/17 at 15:30 Dextrose (D50w Syringe) 50 ml Q15M PRN IV DECREASED GLUCOSE; Start 04/11/17 at 15:30 Glucagon (Glucagen) 1 mg Q15M PRN IM DECREASED GLUCOSE; Start 04/11/17 at 15:30 Glucose (Glutose) 15 gm Q15M PRN BUCCAL DECREASED GLUCOSE; Start 04/11/17 at 15 :30 Diagnostic Test (Pha) (Accu-Chek) 1 ea 02 XX ; Start 04/12/17 at 02:00 Diagnostic Test (Pha) 1 ea 1 ea 02 XX ; Start 04/12/17 at 02:00 Lactated Ringer's (Lr) 1,000 ml @ 80 mls/hr [id number] IV Last administered on t 17:57; Admin Dose 80 MLS/HR; Start 04/11/17 at 16:00 TAMEKA ENNIS MD Apr 12, 2017 07:35
[2017-04-12 07:37] VITALS: BP 123/58; RESP 18
[2017-04-12] MEDS: INSULIN ASPART [NOVOLOG] 3 ML PEN SC SCH ×4 (07:50→21:00)
--- NOTE | 2017-04-12 08:06 | PN ---
Date/Time of Note Date/Time of Note DATE: 04/12/17 TIME: 08:03 Assessment/Plan VTE Prophylaxis VTE Prophylaxis Intervention: ambulation, SCD's, other (Aspirin 325 mg twice daily) Lines/Catheters IV Catheter Type (from Nrsg): Peripheral IV Alvares in Place (from Nrsg): Yes Assessment/Plan Assessment/Plan -Hemovac Removed Today -Pain Cocktail Given -Pain Meds as needed -Dress change performed today -OOB with PT -ASA/SCDs for DVT Prophylaxis -Continue monitoring with Internal Medicine -Patient Stable Subjective 24 Hr Interval Summary 71-year-old female postop day 1 status post right total knee arthroplasty. Mild pain complaints overnight. She has not been weightbearing yet or has performed physical therapy at this time. Denies any calf pain. Denies any shortness of breath, chest pain/tightness. Doing well at this time. Pain Control: mild Exam/Review of Systems Vital Signs Vitals Vital Signs Date Time Temp Pulse Resp B/P Pulse Ox O2 Delivery O2 Flow Rate FiO2 04/12/17 07:37 97.8 66 18 123/58 98 04/11/17 16:40 Room Air 04/11/17 14:00 2.0 Intake and Output 04/11/17 04/11/17 04/12/17 15:00 23:00 07:00 Intake Total 217 ml 216.4 ml Output Total 800 ml 120 ml 60 ml Balance -583 ml 96.4 ml -60 ml Exam Free Text/Dictation -Hemovac: Intact 180 cc output -Pain Cocktail Drains: Intact -Incision: Clean, Dry and Intact without any redness or drainage -4+/5 Tibialis Anterior, EHL Gastrocnemius/Soleus and Peroneals -Normal Sensation -Palpable DP/PT, Capillary Refill <2 secs -No Distal Edema -Negative Chris Sign/No calf pain -Toes Freely Movable Constitutional: alert, oriented, well developed Results Result Diagram: 04/12/17 0500 ANTELMO CLAY PA-C Apr 12, 2017 08:06
[2017-04-12] MEDS ORDERED: NON-FORMULARY/PATIENT OWN MED (Dexlansoprazole (Dexilant) 60 MG) PO SCH (09:00)
[2017-04-12] MEDS ORDERED: CYANOCOBALAMIN 1000 MCG INJ IM ONE (09:00)
[2017-04-12] MEDS: metFORMIN 500 MG TAB PO SCH (09:16)
[2017-04-12] MEDS: FERROUS FUMARATE (SR) TAB PO SCH ×2 (09:16→21:40)
[2017-04-12] MEDS: DOCUSATE SODIUM 100 MG CAP PO SCH ×2 (09:16→21:40)
[2017-04-12] MEDS: CELECOXIB 200 MG CAP PO SCH ×2 (09:16→21:40)
[2017-04-12] MEDS: LISINOPRIL 10 MG TAB PO SCH (09:18)
[2017-04-12] MEDS: CLOPIDOGREL 75 MG TAB PO SCH (09:18)
[2017-04-12] MEDS: ASPIRIN (EC) 325 MG TAB PO SCH ×2 (09:22→21:41)
[2017-04-12 20:00] VITALS: BP 131/60; RESP 19
[2017-04-13 02:00] VITALS: BP 141/65; RESP 19
[2017-04-13] MEDS: ACCU-CHEK XX SCH ×4 (02:00→23:43)
[2017-04-13] MEDS: PANTOPRAZOLE (EC) 40 MG TAB PO SCH (05:02)
[2017-04-13] MEDS: oxyCODONE 5 MG TAB PO PRN (05:02)
[2017-04-13] MEDS: ACETAMINOPHEN 1000MG/100ML IV 100 ML IVPB SCH (05:03)
[2017-04-13 05:04] LABS: BASOPHILS % 0.3 % (0.0-2.0); EOSINOPHILS % 0.6 % (0.0-7.0); HEMATOCRIT 26.4 % (37.0-47.0); HEMOGLOBIN 8.9 g/dl (12.0-16.0); LYMPHOCYTES # 2.7 10^3/ul (0.8-2.9); LYMPHOCYTES % 38.2 % (15.0-51.0); MEAN CORPUSCULAR HEMOGLOBIN 30.1 pg (29.0-33.0); MEAN CORPUSCULAR HGB CONC 33.7 g/dl (32.0-37.0); MEAN CORPUSCULAR VOLUME 89.2 fl (82.0-101.0); MONOCYTE # 0.6 10^3/ul (0.3-0.9); MONOCYTES % 8.6 % (0.0-11.0); PLATELET COUNT 187 10^3/UL (140-415); RED BLOOD COUNT 2.96 10^6/ul (4.20-5.40); RED CELL DISTRIBUTION WIDTH 12.5 % (11.5-14.5)
[2017-04-13] MEDS: LACTATED RINGER'S 1,000 ML IV SCH ×2 (05:30→18:00)
[2017-04-13 05:42] LABS: ALBUMIN 3.2 g/dl (3.3-4.9); ALBUMIN/GLOBULIN RATIO 1.28; BILIRUBIN,INDIRECT 0.3 mg/dl (0-1.1); BILIRUBIN,TOTAL 0.3 mg/dl (0.2-1.3); CALCIUM 9.1 mg/dl (8.4-10.2); CREATININE 0.66 mg/dl (0.44-1.00); POTASSIUM 3.9 mmol/L (3.5-5.1); TOTAL PROTEIN 5.7 g/dl (6.1-8.1)
[2017-04-13] MEDS: DEXAMETHASONE 4 MG/ML 1 ML INJ IV SCH (06:31)
[2017-04-13] MEDS: INSULIN ASPART [NOVOLOG] 3 ML PEN SC SCH ×4 (07:50→20:33)
--- NOTE | 2017-04-13 07:54 | PN ---
Date/Time of Note Date/Time of Note DATE: 04/13/17 TIME: 07:52 Assessment/Plan VTE Prophylaxis VTE Prophylaxis Intervention: ambulation, SCD's, other (Aspirin 325 mg twice daily) Lines/Catheters IV Catheter Type (from Nrsg): Peripheral IV Alvares in Place (from Nrsg): No Assessment/Plan Assessment/Plan -Hemovac Removed Today -Pain Cocktail Given -Pain Meds as needed -Dress change performed today -OOB with PT -ASA/SCDs for DVT Prophylaxis -Continue monitoring with Internal Medicine -Patient Stable -Plan is to discharge home with home health tomorrow. Subjective 24 Hr Interval Summary 71-year-old female postop day 2 status post right total knee arthroplasty. Patient was up and walking throughout the hallways with physical therapy. Does have mild pain complaints with weightbearing. No pain at rest. Continuing to progress well. Pain Control: well controlled Exam/Review of Systems Vital Signs Vitals Vital Signs Date Time Temp Pulse Resp B/P Pulse Ox O2 Delivery O2 Flow Rate FiO2 04/13/17 02:00 98.6 61 19 141/65 98 04/11/17 16:40 Room Air 04/11/17 14:00 2.0 Intake and Output 04/12/17 04/12/17 04/13/17 15:00 23:00 07:00 Intake Total 750 ml 1760 ml 700 ml Output Total 1000 ml Balance -250 ml 1760 ml 700 ml Exam Free Text/Dictation -Hemovac: Removed -Pain Cocktail Drains: Intact -Incision: Clean, Dry and Intact without any redness or drainage -5/5 Tibialis Anterior, EHL Gastrocnemius/Soleus and Peroneals -Limited range of motion as she can flex up to 30 today. Near full extension. Discomfort with range of motion. -Normal Sensation -Palpable DP/PT, Capillary Refill <2 secs -No Distal Edema -Negative Chris Sign/No calf pain -Toes Freely Movable Constitutional: alert, oriented, well developed Results Result Diagram: 04/13/17 0424 04/13/17 0424 ANTELMO CLAY PA-C Apr 13, 2017 07:54
[2017-04-13 08:15] VITALS: BP 120/56; RESP 18
--- NOTE | 2017-04-13 08:48 | CONS ---
Date/Time of Note Date/Time of Note DATE: 04/13/17 TIME: 08:45 Assessment/Plan Assessment/Plan Problems: (1) Diabetes mellitus type 2 in obese Status: Chronic Comment: Adequate control on current medication regimen in a controlled environment. No medication side effects or complications. Continue care (2) Obesity (BMI 30-39.9) Status: Chronic Comment: Calorie restriction diet (3) Essential hypertension Status: Chronic Comment: Adequate control on current medications without untoward side effects. Continue same treatment (4) Status post total right knee replacement Status: Acute Comment: Progressing nicely postoperatively. In physical therapy. (5) B12 deficiency Status: Chronic Comment: On replacement therapy Consultation Date/Type/Reason Admit Date/Time Apr 11, 2017 at 05:49 Initial Consult Date April 11, 2017 Type of Consultation: internal medicine/endo Reason for Consultation Postoperative assistance for medical problems. Referring Provider: VIKA MICHAUD MD 24 HR Interval Summary Constitutional: no complaints (No fevers chills or sweats) Detailed Summary Respiratory: no complaints Cardiovascular: no complaints Gastrointestinal: no complaints Neurologic: no complaints Exam/Review of Systems Vital Signs Vitals Vital Signs Date Time Temp Pulse Resp B/P Pulse Ox O2 Delivery O2 Flow Rate FiO2 04/13/17 08:15 97.9 65 18 120/56 96 04/11/17 16:40 Room Air 04/11/17 14:00 2.0 Intake and Output 04/12/17 04/12/17 04/13/17 15:00 23:00 07:00 Intake Total 750 ml 1760 ml 700 ml Output Total 1000 ml Balance -250 ml 1760 ml 700 ml Exam Constitutional: alert, oriented Respiratory: clear to auscultation, normal air movement Cardiovascular: nl pulses, regular rate and rhythm Extremities: normal pulses, other (No cord no Homans) Results Result Diagram: 04/13/17 0424 04/13/17 0424 Results 24 hrs Laboratory Tests Test 04/12/17 08:52 04/12/17 12:23 04/12/17 17:50 04/12/17 21:45 Bedside Glucose 129 147 131 104 Test 04/13/17 04:24 White Blood Count 7.0 # Red Blood Count 2.96 L Hemoglobin 8.9 L Hematocrit 26.4 L Mean Corpuscular Volume 89.2 Mean Corpuscular Hemoglobin 30.1 Mean Corpuscular Hemoglobin Concent 33.7 Red Cell Distribution Width 12.5 Platelet Count 187 Mean Platelet Volume 11.0 H Neutrophils % 52.0 Lymphocytes % 38.2 Monocytes % 8.6 Eosinophils % 0.6 Basophils % 0.3 Nucleated Red Blood Cells % 0.0 Neutrophils # (Manual) 4 Lymphocytes # 2.7 Monocytes # 0.6 Eosinophils # 0.0 Basophils # 0.0 Nucleated Red Blood Cells # 0.0 Sodium Level 139 Potassium Level 3.9 Chloride Level 107 Carbon Dioxide Level 24 Anion Gap 12 Blood Urea Nitrogen 13 Creatinine 0.66 Glucose Level 91 Calcium Level 9.1 Total Bilirubin 0.3 Direct Bilirubin 0.00 Indirect Bilirubin 0.3 Aspartate Amino Transf (AST/SGOT) 24 Alanine Aminotransferase (ALT/SGPT) 31 Alkaline Phosphatase 61 Total Protein 5.7 L Albumin 3.2 L Globulin 2.50 Albumin/Globulin Ratio 1.28 Medications Medications Current Medications Oxycodone HCl (Roxicodone) 20 mg Q3H PRN PO PAIN LEVEL 8-10; Start 04/11/17 at 12:30 Oxycodone HCl (Roxicodone) 10 mg Q3H PRN PO PAIN LEVEL 4-7; Start 04/11/17 at 12:30 Oxycodone HCl (Roxicodone) 5 mg Q3H PRN PO PAIN LEVEL 1-3 Last administered on 04/13/17 05:02; Admin Dose 5 MG; Start 04/11/17 at 12:30 Zolpidem Tartrate (Ambien) 5 mg HS PRN PO INSOMNIA Last administered on 01:09; Admin Dose 5 MG; Start 04/11/17 at 12:30 Miscellaneous Information (Note) NOTE XX ; Start 04/11/17 at 12:30 Aspirin (Ecotrin) 325 mg BID PO Last administered on 04/12/17 21:41; Admin Dose 325 MG; Start 04/12/17 at 09:00 Celecoxib (Celebrex) 200 mg BID PO Last administered on 04/12/17 21:40; Admin Dose 200 MG; Start 04/12/17 at 09:00 Dexamethasone (Decadron) 4 mg DAILY@07 IV Last administered on 04/13/17 06:31 ; Admin Dose 4 MG; Start 04/12/17 at 07:00; Stop 04/15/17 at 06:59 Pantoprazole (Protonix Tab) 40 mg DAILY@06 PO Last administered on 04/13/17 05 :02; Admin Dose 40 MG; Start 04/13/17 at 06:00 Docusate Sodium/ Ferrous Fumarate (Zahraa-Sequels) 1 tab BID PO Last administered on 04/12/17 21:40; Admin Dose 1 TAB; Start 04/12/17 at 09:00 Docusate Sodium (Colace) 200 mg BID PO Last administered on 04/12/17 21:40; Admin Dose 200 MG; Start 04/12/17 at 09:00; Stop 04/15/17 at 08:59 Simethicone (Mylicon) 80 mg TID PRN PO DISTENSION/GAS/BLOATING; Start 04/11/17 at 12:30 Senna/Docusate Sodium (Senokot-S) 2 tab BID PRN PO CONSTIPATION; Start at 12:30 Magnesium Hydroxide (Milk Of Mag) 30 ml HS PRN PO CONSTIPATION; Start 04/11/17 at 12:30 Bisacodyl (Dulcolax Supp) 10 mg DAILY PRN CO CONSTIPATION Last administered on 04/12/17 12:11; Admin Dose 10 MG; Start 04/11/17 at 12:30 Sodium Biphosphate/ Sodium Phosphate (Fleet Enema) 133 ml DAILY PRN CO CONSTIPATION; Start 04/11/17 at 12:30 Diphenhydramine HCl (Benadryl) 25 mg Q4H PRN IM ITCHING OR RASH Last administered on 04/13/17 05:02; Admin Dose 25 MG; Start 04/11/17 at 12:30 Ketorolac Tromethamine (Toradol) 15 mg DAILY@06 PRN INJ ADMINSTER BY SURGEON ONLY; Start 04/12/17 at 06:00; Stop 04/16/17 at 05:59 Bupivacaine HCl/ Epinephrine Bitart (Marcaine 0.25%/ Epi (Sdv) 30 ml) 20 ml DAILY@06 PRN INJ ADMINSTER BY SURGEON ONLY; Start 04/12/17 at 06:00; Stop 04/16 at 05:59 Naloxone HCl (Narcan) 0.2 mg Q2M PRN IV DECREASED REPIRATORY RATE; Start at 12:30 Clopidogrel Bisulfate (plaVIX) 75 mg DAILY PO Last administered on 04/12/17 09 :18; Admin Dose 75 MG; Start 04/12/17 at 09:00 Lisinopril (Zestril) 10 mg DAILY PO Last administered on 04/12/17 09:18; Admin Dose 10 MG; Start 04/12/17 at 09:00 Miscellaneous Information 1 ea NOTE XX ; Start 04/11/17 at 15:30 Glucose (Glutose) 15 gm Q15M PRN PO DECREASED GLUCOSE; Start 04/11/17 at 15:30 Glucose (Glutose) 22.5 gm Q15M PRN PO DECREASED GLUCOSE; Start 04/11/17 at 15: 30 Dextrose (D50w Syringe) 25 ml Q15M PRN IV DECREASED GLUCOSE; Start 04/11/17 at 15:30 Dextrose (D50w Syringe) 50 ml Q15M PRN IV DECREASED GLUCOSE; Start 04/11/17 at 15:30 Glucagon (Glucagen) 1 mg Q15M PRN IM DECREASED GLUCOSE; Start 04/11/17 at 15:30 Glucose (Glutose) 15 gm Q15M PRN BUCCAL DECREASED GLUCOSE; Start 04/11/17 at 15 :30 Diagnostic Test (Pha) (Accu-Chek) 1 ea 02 XX ; Start 04/12/17 at 02:00 Diagnostic Test (Pha) 1 ea 1 ea 02 XX ; Start 04/12/17 at 02:00 Lactated Ringer's (Lr) 1,000 ml @ 80 mls/hr [id number] IV Last administered on 17:57; Admin Dose 80 MLS/HR; Start 04/11/17 at 16:00 Cyanocobalamin (Vitamin B12) 1,000 mcg DAILY PO ; Start 04/13/17 at 09:00 TAMEKA ENNIS MD Apr 13, 2017 08:48
[2017-04-13] MEDS: FERROUS FUMARATE (SR) TAB PO SCH ×2 (09:39→20:31)
[2017-04-13] MEDS: CYANOCOBALAMIN 500 MCG TAB PO SCH (09:39)
[2017-04-13] MEDS: CLOPIDOGREL 75 MG TAB PO SCH (09:40)
[2017-04-13] MEDS: DOCUSATE SODIUM 100 MG CAP PO SCH ×2 (09:40→20:31)
[2017-04-13] MEDS: LISINOPRIL 10 MG TAB PO SCH (09:40)
[2017-04-13] MEDS: metFORMIN 500 MG TAB PO SCH (09:40)
[2017-04-13] MEDS: ASPIRIN (EC) 325 MG TAB PO SCH ×2 (09:41→20:31)
[2017-04-13] MEDS: CELECOXIB 200 MG CAP PO SCH ×2 (09:41→20:30)
[2017-04-13] MEDS ORDERED: CALCIUM CARBONATE 500 MG CHEW TAB PO PRN (18:30)
[2017-04-13 19:26] VITALS: BP 116/56; RESP 18
[2017-04-14 01:55] VITALS: BP 120/55; RESP 18
[2017-04-14] MEDS: oxyCODONE 5 MG TAB PO PRN ×3 (05:48→19:09)
[2017-04-14] MEDS: PANTOPRAZOLE (EC) 40 MG TAB PO SCH (05:48)
[2017-04-14] MEDS: DEXAMETHASONE 4 MG/ML 1 ML INJ IV SCH (05:48)
[2017-04-14] MEDS: LACTATED RINGER'S 1,000 ML IV SCH (05:53)
--- NOTE | 2017-04-14 07:53 | CONS ---
Date/Time of Note Date/Time of Note DATE: 04/14/17 TIME: 07:48 Consult Date/Type/Reason Admit Date/Time Apr 11, 2017 at 05:49 Initial Consult Date 04/02/2017 Type of Consultation: internal medicine/endo Reason for Consultation medical f/u and management of dm and general medical condition Ordering Provider: VIKA MICHAUD MD Subjective no complaints however states she is alone at home most of the day requesting to go to rehab facility Objective Vital Signs Date Time Temp Pulse Resp B/P Pulse Ox O2 Delivery O2 Flow Rate FiO2 04/14/17 01:55 98.2 82 18 120/55 94 04/11/17 16:40 Room Air 04/11/17 14:00 2.0 Intake and Output 04/13/17 04/13/17 04/14/17 15:00 23:00 07:00 Intake Total 840 ml 850 ml Output Total 900 ml Balance 840 ml -50 ml Exam vss heent negative lungs clear heart regular rhythm abdomen soft Results/Medications Result Diagram: 04/13/17 0424 04/13/17 0424 Results 24 hrs Laboratory Tests Test 04/13/17 08:38 04/13/17 12:44 04/13/17 18:23 04/13/17 20:32 Bedside Glucose 101 100 129 105 Medications Current Medications Oxycodone HCl (Roxicodone) 20 mg Q3H PRN PO PAIN LEVEL 8-10; Start 04/11/17 at 12:30 Oxycodone HCl (Roxicodone) 10 mg Q3H PRN PO PAIN LEVEL 4-7; Start 04/11/17 at 12:30 Oxycodone HCl (Roxicodone) 5 mg Q3H PRN PO PAIN LEVEL 1-3 Last administered on 04/14/17 05:48; Admin Dose 5 MG; Start 04/11/17 at 12:30 Zolpidem Tartrate (Ambien) 5 mg HS PRN PO INSOMNIA Last administered on 01:09; Admin Dose 5 MG; Start 04/11/17 at 12:30 Miscellaneous Information (Note) NOTE XX ; Start 04/11/17 at 12:30 Aspirin (Ecotrin) 325 mg BID PO Last administered on 04/13/17 20:31; Admin Dose 325 MG; Start 04/12/17 at 09:00 Celecoxib (Celebrex) 200 mg BID PO Last administered on 04/13/17 20:30; Admin Dose 200 MG; Start 04/12/17 at 09:00 Dexamethasone (Decadron) 4 mg DAILY@07 IV Last administered on 04/14/17 05:48 ; Admin Dose 4 MG; Start 04/12/17 at 07:00; Stop 04/15/17 at 06:59 Pantoprazole (Protonix Tab) 40 mg DAILY@06 PO Last administered on 04/14/17 05 :48; Admin Dose 40 MG; Start 04/13/17 at 06:00 Docusate Sodium/ Ferrous Fumarate (Zahraa-Sequels) 1 tab BID PO Last administered on 04/13/17 20:31; Admin Dose 1 TAB; Start 04/12/17 at 09:00 Docusate Sodium (Colace) 200 mg BID PO Last administered on 04/13/17 09:40; Admin Dose 200 MG; Start 04/12/17 at 09:00; Stop 04/15/17 at 08:59 Simethicone (Mylicon) 80 mg TID PRN PO DISTENSION/GAS/BLOATING; Start 04/11/17 at 12:30 Senna/Docusate Sodium (Senokot-S) 2 tab BID PRN PO CONSTIPATION Last administered on 04/13/17 14:26; Admin Dose 2 TAB; Start 04/11/17 at 12:30 Magnesium Hydroxide (Milk Of Mag) 30 ml HS PRN PO CONSTIPATION Last administered on 04/13/17 14:26; Admin Dose 30 ML; Start 04/11/17 at 12:30 Bisacodyl (Dulcolax Supp) 10 mg DAILY PRN [place] CONSTIPATION Last administered on 04/12/17 12:11; Admin Dose 10 MG; Start 04/11/17 at 12:30 Sodium Biphosphate/ Sodium Phosphate (Fleet Enema) 133 ml DAILY PRN NV CONSTIPATION; Start 04/11/17 at 12:30 Diphenhydramine HCl (Benadryl) 25 mg Q4H PRN IM ITCHING OR RASH Last administered on 04/13/17 05:02; Admin Dose 25 MG; Start 04/11/17 at 12:30 Ketorolac Tromethamine (Toradol) 15 mg DAILY@06 PRN INJ ADMINSTER BY SURGEON ONLY; Start 04/12/17 at 06:00; Stop 04/16/17 at 05:59 Bupivacaine HCl/ Epinephrine Bitart (Marcaine 0.25%/ Epi (Sdv) 30 ml) 20 ml DAILY@06 PRN INJ ADMINSTER BY SURGEON ONLY; Start 04/12/17 at 06:00; Stop 04/16 at 05:59 Naloxone HCl (Narcan) 0.2 mg Q2M PRN IV DECREASED REPIRATORY RATE; Start at 12:30 Clopidogrel Bisulfate (plaVIX) 75 mg DAILY PO Last administered on 04/13/17 09 :40; Admin Dose 75 MG; Start 04/12/17 at 09:00 Lisinopril (Zestril) 10 mg DAILY PO Last administered on 04/13/17 09:40; Admin Dose 10 MG; Start 04/12/17 at 09:00 Miscellaneous Information 1 ea NOTE XX ; Start 04/11/17 at 15:30 Glucose (Glutose) 15 gm Q15M PRN PO DECREASED GLUCOSE; Start 04/11/17 at 15:30 Glucose (Glutose) 22.5 gm Q15M PRN PO DECREASED GLUCOSE; Start 04/11/17 at 15: 30 Dextrose (D50w Syringe) 25 ml Q15M PRN IV DECREASED GLUCOSE; Start 04/11/17 at 15:30 Dextrose (D50w Syringe) 50 ml Q15M PRN IV DECREASED GLUCOSE; Start 04/11/17 at 15:30 Glucagon (Glucagen) 1 mg Q15M PRN IM DECREASED GLUCOSE; Start 04/11/17 at 15:30 Glucose (Glutose) 15 gm Q15M PRN BUCCAL DECREASED GLUCOSE; Start 04/11/17 at 15 :30 Diagnostic Test (Pha) (Accu-Chek) 1 ea 02 XX ; Start 04/12/17 at 02:00 Diagnostic Test (Pha) 1 ea 1 ea 02 XX ; Start 04/12/17 at 02:00 Lactated Ringer's (Lr) 1,000 ml @ 80 mls/hr [id number] IV Last administered on 17:57; Admin Dose 80 MLS/HR; Start 04/11/17 at 16:00 Cyanocobalamin (Vitamin B12) 1,000 mcg DAILY PO Last administered on 04/13/17t 09:39; Admin Dose 1,000 MCG; Start 04/13/17 at 09:00 Calcium Carbonate (Tums) 500 mg Q2 PRN PO GASTROINTESTINAL UPSET; Start at 18:30 Assessment/Plan Chief Complaint/Hosp Course post total knee replacement Problems: Additional Assessment/Plan plan will get case management re rehab placement medically stable at this point DM in excellent control--thank you SO James MD Apr 14, 2017 07:53
[2017-04-14 07:59] VITALS: BP 121/59; RESP 20
--- NOTE | 2017-04-14 08:06 | PN ---
Date/Time of Note Date/Time of Note DATE: 04/14/17 TIME: 08:01 Assessment/Plan VTE Prophylaxis VTE Prophylaxis Intervention: ambulation, SCD's, other (Aspirin 325 mg twice daily) Lines/Catheters IV Catheter Type (from Nrsg): Saline Lock Alvares in Place (from Nrsg): No Assessment/Plan Assessment/Plan -Pain Cocktail Drains removed today. -Pain Meds as needed -Dress change performed today -ASA for DVT Prophylaxis x 6 weeks outpatient discussed. -Continue monitoring as outpatient on discharge -Follow-up at scheduled postop outpatient appointment or sooner if there is any issue. -Tegaderm dressings given with specific instructions to use as outpatient to keep wound dry until katrina are moved around 10 days. -Patient Stable -[facility] is [facility]. Given patient's improvement in functionality status post surgery it was recommended that patient is okay to return home with home health. Patient states that she is typically at home alone and has great fear that in the event that something should happen she will have no assistance. She also states that she has very low furniture involving increased bending just to sit down and feel that she will not be able to return to a standing position after she gets down. Spoke with patient's daughter today who also feels that it is best that patient go to jail facility for at least 1 week for assisted and close monitoring. He was once again recommended that patient is okay to return home but they would like to be transferred to jail facility. We will respect patient's request. -Discharge to SNF Subjective 24 Hr Interval Summary 71-year-old female postop day 3 status post right total knee arthroplasty. Patient continues to do well. Patient denies any significant pain complaints to the knee but does have complaints of hypersensitivity to the skin around the knee and just proximal to the wound. Patient is up and walking with physical therapy. Denies any calf pain, chest pain or tightness. Plan is to discharge today. Pain Control: well controlled Exam/Review of Systems Vital Signs Vitals Vital Signs Date Time Temp Pulse Resp B/P Pulse Ox O2 Delivery O2 Flow Rate FiO2 04/14/17 07:59 98.5 70 20 121/59 98 04/11/17 16:40 Room Air 04/11/17 14:00 2.0 Intake and Output 04/13/17 04/13/17 04/14/17 15:00 23:00 07:00 Intake Total 840 ml 850 ml Output Total 900 ml Balance 840 ml -50 ml Exam Free Text/Dictation -Pain Cocktail Drains: Intact -Incision: Clean, Dry and Intact without any redness or drainage -5/5 Tibialis Anterior, EHL Gastrocnemius/Soleus and Peroneals -Normal Sensation -Palpable DP/PT, Capillary Refill <2 secs -No Distal Edema -Negative Chris Sign/No calf pain -Toes Freely Movable Constitutional: alert, oriented, well developed Results Result Diagram: 04/13/17 0424 04/13/17 0424 ANTELMO CLAY PA-C Apr 14, 2017 08:06
[2017-04-14] MEDS: DOCUSATE SODIUM 100 MG CAP PO SCH (09:00)
[2017-04-14] MEDS: ASPIRIN (EC) 325 MG TAB PO SCH (09:11)
[2017-04-14] MEDS: FERROUS FUMARATE (SR) TAB PO SCH (09:11)
[2017-04-14] MEDS: CELECOXIB 200 MG CAP PO SCH (09:11)
[2017-04-14] MEDS: CLOPIDOGREL 75 MG TAB PO SCH (09:11)
[2017-04-14] MEDS: metFORMIN 500 MG TAB PO SCH (09:11)
[2017-04-14] MEDS: CYANOCOBALAMIN 500 MCG TAB PO SCH (09:11)
[2017-04-14] MEDS: LISINOPRIL 10 MG TAB PO SCH (09:12)
[2017-04-14] MEDS: INSULIN ASPART [NOVOLOG] 3 ML PEN SC SCH ×3 (09:12→17:47)
[2017-04-14 10:50] LABS: BASOPHILS % 0.3 % (0.0-2.0); EOSINOPHILS % 0.3 % (0.0-7.0); HEMATOCRIT 27.1 % (37.0-47.0); HEMOGLOBIN 8.9 g/dl (12.0-16.0); LYMPHOCYTES # 0.9 10^3/ul (0.8-2.9); LYMPHOCYTES % 14.9 % (15.0-51.0); MEAN CORPUSCULAR HEMOGLOBIN 29.5 pg (29.0-33.0); MEAN CORPUSCULAR HGB CONC 32.8 g/dl (32.0-37.0); MEAN CORPUSCULAR VOLUME 89.7 fl (82.0-101.0); MEAN PLATELET VOLUME 11.1 fl (7.4-10.4); MONOCYTE # 0.3 10^3/ul (0.3-0.9); MONOCYTES % 5.4 % (0.0-11.0); NEUTROPHILS % 78.8 % (39.0-77.0); PLATELET COUNT 194 10^3/UL (140-415); RED BLOOD COUNT 3.02 10^6/ul (4.20-5.40); RED CELL DISTRIBUTION WIDTH 13.1 % (11.5-14.5); WHITE BLOOD COUNT 5.8 10^3/ul (4.8-10.8)
--- NOTE | 2017-04-15 08:50 | DS ---
Date/Time of Note Date/Time of Note DATE: 04/15/17 TIME: 08:48 Discharge Summary Admission/Discharge Info Admit Date/Time Apr 11, 2017 at 05:49 Discharge Date/Time Apr 14, 2017 at 19:15 Discharge Diagnosis Status post right total knee arthroplasty Patient Condition: Stable Hospital Course On the day of admission, the patient underwent right total knee arthroplasty Intraoperative complications: None Postoperative complications: None The patient was given prophylactic antibiotics and anticoagulants. On the day of surgery and first postoperative day patient was started on gait training and was taught usual restrictions following knee replacement Suction drain removed on the first postoperative day and the dressings were changed. The wound was found to be clean and healing well. There was no sign of infection. Pain cocktail given. On the second postoperative day, patient continued with inpatient PT. Dressings were changed. Wound was found to be clean and healing well. No signs of infection. Pain cocktail given. On the day of discharge, the wound was clean and healing well; there was no sign of infection. The dressings were changed. Discharge Temperature: 98.5 Discharge White Blood Cell Count: 5.8 Discharge Hemoglobin: 8.9 The patient was discharged group home facility. Arrangements were made for visiting nurses and home health/physical therapy. Tegaderm with pad also provided for patient. Instructions given on how to use to keep wound dry while showering. Patient may discontinue use of Tegaderm with pad after katrina have been removed around 10 days postoperatively. The patient will be seen in office at scheduled postoperative evaluation date given on their preoperative exam. Should patient complain of any problems prior to scheduled postoperative evaluation date, they may call into outpatient clinic to determine if they need to be scheduled at sooner appointment to be seen immediately if needed. Discharge medications: As per medication reconciliation form Diet: Same as preadmission diet. This is Antelmo Lr PA-C dictating discharge summary for Dr. Wayne Kulkarni. Home Meds Reported Medications Naproxen* (Naprosyn*) 500 Mg Tablet, 500 MG PO BID, TAB 04/11/17 Bumetanide* (Bumetanide*) 1 Mg Tablet, 1 MG PO DAILY, TAB 04/11/17 Lisinopril* (Lisinopril*) 10 Mg Tablet, 10 MG PO DAILY, #30 TAB 04/11/17 Dexlansoprazole (Dexilant) 60 Mg Cap., 60 MG PO DAILY, #30 CAP 04/11/17 Clopidogrel Bisulfate (Clopidogrel) 75 Mg Tablet, 75 MG PO DAILY, #30 TAB 04/11/17 Metformin* (Glucophage*) 500 Mg Tab, 500 MG PO DAILY, #90 TAB 04/11/17 Follow-up Plan Follow-up 3 weeks status post surgery on appointment date given on her preoperative visit. Primary Care Provider Sreekanth Kim Pending Labs Laboratory Tests Test 04/14/17 08:50 04/14/17 09:38 04/14/17 12:50 04/14/17 17:45 Bedside Glucose 158mg/dL (70-220) 158mg/dL (70-220) 139mg/dL (70-220) White Blood Count 5.810^3/ul (4.8-10.8) Red Blood Count 3.0210^6/ul (4.20-5.40) Hemoglobin 8.9g/dl (12.0-16.0) Hematocrit 27.1% (37.0-47.0) Mean Corpuscular Volume 89.7fl (82.0-101.0) Mean Corpuscular Hemoglobin 29.5pg (29.0-33.0) Mean Corpuscular Hemoglobin Concent 32.8g/dl (32.0-37.0) Red Cell Distribution Width 13.1% (11.5-14.5) Platelet Count 95073^3/UL (140-415) Mean Platelet Volume 11.1fl (7.4-10.4) Neutrophils % 78.8% (39.0-77.0) Lymphocytes % 14.9% (15.0-51.0) Monocytes % 5.4% (0.0-11.0) Eosinophils % 0.3% (0.0-7.0) Basophils % 0.3% (0.0-2.0) Nucleated Red Blood Cells % 0.0/100WBC (0.0-0.0) Neutrophils # (Manual) 510^3/ul (1.7-7.5) Lymphocytes # 0.910^3/ul (0.8-2.9) Monocytes # 0.310^3/ul (0.3-0.9) Eosinophils # 0.010^3/ul (0.0-0.5) Basophils # 0.010^3/ul (0.0-0.1) Nucleated Red Blood Cells # 0.010^3/ul (0.0-0.0) ANTELMO CLAY PA-C Apr 15, 2017 08:50
== END 2017-04-14 19:15 | DRG 470 ==
LOC: REC 04-11 05:49 → MS1 04-11 13:32
PROC: 0SRC0J9 Replacement of Right Knee Joint with Synthetic Substitute, Cemented, Open Approach (ICD-10-PCS; principal; 2017-04-11 08:00)
DX: M17.11 Unilateral primary osteoarthritis, right knee (principal); I10 Essential (primary) hypertension; E11.9 Type 2 diabetes mellitus without complications; Z79.02 Long term (current) use of antithrombotics/antiplatelets; Z79.84 Long term (current) use of oral hypoglycemic drugs; E78.5 Hyperlipidemia, unspecified; K21.9 Gastro-esophageal reflux disease without esophagitis; E66.9 Obesity, unspecified; Z68.37 Body mass index [BMI] 37.0-37.9, adult; E53.8 Deficiency of other specified B group vitamins
CPT/HCPCS: 73560; 80053; 82962; 85025; 86703; 86803; 86850; 86900; 86901; 86920; 87070; 87086; 87340; 88304; 88311; 97110; 97116; 97162; 97530; C1776; J0131; J0690; J0735; J1100; J1200; J1815; J1885; J2250; J2274; J2405; J2795; J3010; J3370; J3420; J7120; J7121

== ENCOUNTER → 2017-04-10 | Outpatient (CLI) | payer MEDICARE ==
[~2017-04-10] MED LIST: BUME1TAB18 PO; CLOP75TA27 PO; DEXL60CA2 PO; LISI10TA2 PO; METF500T4 PO; NAPR-260 PO
--- NOTE | 2017-04-10 23:08 | HKNOTE ---
DATE OF SERVICE: 04/10/2017 HISTORY OF PRESENT ILLNESS: The patient comes in for a preoperative evaluation. She is scheduled to have a right total knee replacement. She comes in with her daughter, who took who translates for her. She has been cleared for surgery by Dr. Luís Sosa. MANAGEMENT: She has not given any blood. We will order transfusion. She understands risk associated with using hospital blood. She is agreeable to using hospital blood if needed. The patient was invited to ask more questions and she stated that she had exhausted all questions she wanted to. Dictated By: Wayne Kulkarni MD /chevy/samantha /Document#: [id number]
== END | disposition home or self-care (01) ==
LOC: HKI 13:36
DX: Z01.818 Encounter for other preprocedural examination (principal)
CPT/HCPCS: G0463

== ENCOUNTER → 2017-05-22 | Outpatient (CLI) | payer MEDICARE, OTHER ==
--- NOTE | 2017-05-22 11:58 | PN ---
Date/Time of Note Date/Time of Note DATE: 05/22/17 TIME: 11:54 Outpatient Progress Note Chief Complaint 6 weeks status post right total knee replacement HPI 71-year-old female presents today for follow-up status post right total knee replacement on 04/11/2017. Patient denies any pain complaints. She does have numbness along the lateral side of the knee just lateral to the tibial tuberosity. Denies any falls or injury. Patient continues using front wheeled walker for assisted ambulation. Patient states that her functionality has significantly improved compared to prior to surgery. Continues with physical therapy. Patient is very pleased status post surgery. Review of Systems Const: No Fever, no chills, no Fatigue, normal appetite, no diaphoresis. Resp: No SOB, no wheezing, no chest pain. CV: No chest pain, no palpitaions, no FORD. Physical Exam Blood pressure is 113/55, temperature is 98.9, pulse is 78, respiratory rate is 12, height is 5 feet, weight is 184 pounds General Appearance: well-developed, well-nourished, in no acute distress. Right knee: Surgical wound is clean dry and intact and healing well. No tenderness to palpation. Numbness along the lateral side of the knee. Patient is able to flex up to 105. She is able to fully extend. 5/5 strength on resistance with flexion and extension. Negative Homans sign. Assisted ambulation using front wheeled walker. Imaging X-ray of the Right knee performed on 05/22/2017 showing all components appearing well aligned, attached and integrated to the bone. No signs of any lucency between metal and bone. Allergies Coded Allergies: No Known Allergy (Unverified , 04/11/17) Assessment/Plan -Patient progressing well -Surgical wound continues to heal well. -No signs of infection or DVT on exam. -X-rays showing no abnormalities in regards to prosthesis attachment to bone. -Range of motion is improved status post total knee replacement. -Antibiotic prophylaxis card provided today. -Follow-up 6 months status post surgery. If patient is doing well at that time , possible follow-up on as-needed basis from that point. Dental prophylaxis discussed in detail today. Patient given prophylaxis card with antibiotic options. Should patient have allergy to specific medication ( eg penicillin) alternative options are also provided on the card. Patient is aware that antibiotics should be taken prior to any procedures to prevent increased risk of infection to the joint. Patient is aware that this will be for the rest of their life. Patient states understanding and compliance. Patient complains of left knee pain as well. Patient was seen and evaluated also with Dr. Kulkarni who recommended cortisone injection todayTo the left knee. Patient agrees and consents to cortisone injection. Area was cleaned and sterilized with Betadine and medial compartment of the left knee was injected with 2 cc of Kenalog 40 mg/mL mixed with 6 cc of 0.25% Marcaine. Patient tolerated injection well. Observe for 3-5 minutes prior to discharge. Dr. Kulkarni was present for examination and agrees with plan. Medications Home Meds Reported Medications Naproxen* (Naprosyn*) 500 Mg Tablet, 500 MG PO BID, TAB 04/11/17 Bumetanide* (Bumetanide*) 1 Mg Tablet, 1 MG PO DAILY, TAB 04/11/17 Lisinopril* (Lisinopril*) 10 Mg Tablet, 10 MG PO DAILY, #30 TAB 04/11/17 Dexlansoprazole (Dexilant) 60 Mg Cap., 60 MG PO DAILY, #30 CAP 04/11/17 Clopidogrel Bisulfate (Clopidogrel) 75 Mg Tablet, 75 MG PO DAILY, #30 TAB 04/11/17 Metformin* (Glucophage*) 500 Mg Tab, 500 MG PO DAILY, #90 TAB 04/11/17 ANTELMO CLAY PA-C May 22, 2017 11:58
--- NOTE | 2017-05-22 17:07 | RADRPT ---
PROCEDURE: Right knee radiographs. CLINICAL INDICATION: Right knee pain. Postop. TECHNIQUE: Three views. Weight bearing. Frontal, lateral, and patellar view. COMPARISON: 02/12/2017. FINDINGS: There is no fracture or dislocation. The soft tissues are normal. There is a total right knee constrained arthroplasty which appears satisfactory. There is no lytic or blastic lesion. IMPRESSION: 1. Satisfactory postoperative appearance of the right knee. RPTAT: QQ .Sreekanth Lassiter MD, MD Date Time Electronically viewed and signed by .Sreekanth Lassiter MD, MD on 05/22/2017 17:07 .R/
== END | disposition home or self-care (01) ==
LOC: HKI 10:46
DX: Z47.1 Aftercare following joint replacement surgery (principal); Z96.651 Presence of right artificial knee joint

== ENCOUNTER → 2017-07-08 | Outpatient (CLI) | payer OTHER ==
--- NOTE | 2017-07-08 15:18 | HKNOTE ---
DATE OF SERVICE: 07/08/2017 The patient underwent a right knee replacement on 04/11/2017. She was doing very well at her last v isit. She comes in with her daughter who translates for her. She has not been able to get off a wa lker since the surgery. Two weeks ago she had a sudden onset of pain around the lower end of the kn ee. The pain seems to be constant, but she is concerned about it. A week ago she applied a "Tylenol lotion" to the knee and she developed a very severe rash. PHYSICAL EXAMINATION: VITAL SIGNS: Blood pressure 135/60, temperature 99 (coffee). Examination of the right knee: No ex ternal sign of infection or inflammation. Remnants of the rash is noted. Excellent range of motion without pain. IMAGING: Plain x-rays of the right knee obtained today do not show any fractures or loosening of th e underlying implants. MANAGEMENT: Given reassurance and will be seen again in 3 months' time for reevaluation. Dictated By: VIKA SHANKS/VJ Conf#: [id number] DID#: [id number]
--- NOTE | 2017-07-08 16:54 | RADRPT ---
PROCEDURE: Right knee radiographs. CLINICAL INDICATION: Right knee pain. Postop. TECHNIQUE: Three views. Weight bearing. Frontal, lateral, and patellar view. COMPARISON: No prior studies are available for comparison. FINDINGS: There is no fracture or dislocation. The soft tissues are normal. There is a total right knee constrained arthroplasty which appears satisfactory. There is no lytic or blastic lesion. IMPRESSION: 1. Satisfactory postoperative appearance of the right knee. RPTAT: QQ .Sreekanth Lassiter MD, MD Date Time Electronically viewed and signed by .Sreekanth Lassiter MD, MD on 07/08/2017 16:53 .R/
== END | disposition home or self-care (01) ==
LOC: HKI 09:27
DX: Z09 Encounter for follow-up examination after completed treatment for conditions other than malignant neoplasm (principal); M25.561 Pain in right knee; R21 Rash and other nonspecific skin eruption; Z96.651 Presence of right artificial knee joint

== ENCOUNTER → 2018-01-12 | Outpatient (CLI) | END | disposition home or self-care (01) ==

== ENCOUNTER → 2018-05-11 | Outpatient (CLI) | END | disposition home or self-care (01) ==

== ENCOUNTER → 2018-05-12 | Outpatient (CLI) | END | disposition home or self-care (01) ==

== ENCOUNTER 2018-05-21 07:57 | Observation (INO) | END 2018-05-24 16:45 | disposition home health service (06) ==

== ENCOUNTER → 2018-06-05 | Outpatient (CLI) | END | disposition home or self-care (01) ==

== ENCOUNTER → 2018-07-06 | Outpatient (CLI) | END | disposition home or self-care (01) ==

== ENCOUNTER → 2018-08-13 | Outpatient (CLI) | END | disposition home or self-care (01) ==